=== PATIENT | male | born 1970 | race Caucasian/White ===

== ENCOUNTER 2019-09-26 11:09 | Emergency (ER) | payer OTHER, SELFPAY ==
--- NOTE | ~2019-09-26 | CT_ITS ---
EXAMINATION: CT abdomen pelvis w con INDICATION: Right lower quadrant abdominal pain TECHNIQUE: Computed tomographic images of the abdomen and pelvis were obtained after the administrati on of 100 cc of Omnipaque 350 intravenous contrast. The dose-length product (DLP) was 1485.15 mGy-cm. Automated exposure control and iterative reconstruction technique were employed. COMPARISON: None available FINDINGS: The lung bases are clear. The heart size is normal. There is a small sliding hiatal hernia. The liver, spleen, pancreas, gallbladder, and adrenal glands are normal. The left kidney is unremark able. An 8 mm hypoattenuating lesion of the right kidney lower pole is too small to characterize but likely represents a cyst. No pathologically enlarged abdominal or pelvic lymph nodes are identified. There is no free intraperitoneal gas or evidence of bowel obstruction. The appendix is normal. There is a fat-containing left inguinal hernia. There is moderate lumbar spondylosis. IMPRESSION: 1. No CT correlate for the patient's symptoms. Reviewed, dictated and finalized at location A.
--- NOTE | 2019-09-26 11:20 | ED.ABDPAIN ---
HPI - Abdominal Pain General Chief Complaint: Abdominal Pain Stated Complaint: sharp pain in r side Time Seen by Provider: 09/26/19 11:30 History of Present Illness HPI narrative: Patient was adjusting the level on his lawnmower and bending over to do that. He felt a pop on the right side just above the belt line. Immediate severe pain. Number anything like this before. MD elicited complaint: abdominal pain Pertinent past history: none Onset (ago): minute(s) (30) Pain Consistency: constant Location: RLQ and R flank Pain scale (0-10): 8 Quality: stabbing and sharp Radiation: none Migration to: no migration Exacerbating factors: movement Relieving factors: nothing Associated symptoms: denies other symptoms Related Data Home Medications Medication Instructions Recorded Confirmed metoprolol succinate 100 mg PO DAILY 09/26/19 09/26/19 omeprazole 40 mg PO DAILY 09/26/19 09/26/19 Allergies Allergy/AdvReac Type Severity Reaction Status Date / Time No Known Allergies Allergy Verified 09/26/19 11:59 Review of Systems Review of Systems: All systems reviewed & are unremarkable except as noted in HPI and below PMFSH Past Medical History Medical History (Updated 09/26/19 @ 13:31 by Bernardo Farley MD) Gastroesophageal reflux disease Hypertension Surgical History Surgical History (Updated 09/26/19 @ 12:02 by Bernardo Farley MD) H/O cervical spine surgery Social History Social History (Updated 09/26/19 @ 12:03 by Bernardo Farley MD) Smoking status: Never smoker Alcohol intake: current Alcohol use details: occasional Substance use: never Exam Const: General: healthy appearing, no acute distress and alert Nutritional Appearance: well nourished and obese morbidly obese Orientation/consciousness: patient oriented x3 HENMT: Head: normal to inspection Ears: external ears normal Eyes: Conjunctivae: conjunctivae normal Pupils: Equal, round and reactive pupils present EOM: EOMs intact bilaterally Neck: Neck: normal visual inspection Resp: Effort & Inspection: normal respiratory effort Auscultation: clear to auscultation bilaterally Cardio: Rate: regular rate Rhythm: regular rhythm Heart sounds: no murmurs GI: GI Palp: Yes Soft to palpation and Yes Tenderness to palpation present (GI) ( severe tenderness in the right lower quadrant.) Other: patient is exquisitely tender in the right lower quadrant just above the belt line and in the distal clavicular line. Seems to be more in the abdominal wall. I cannot appreciate any masses or herniation of tissue. Back/Spine/Pelvis: Cervical Spine: cervical ROM normal Thoracic/Lumbar Spine: thoraco-lumbar ROM normal Skin: General skin exam: normal color Rashes: no rashes Neuro: General: patient oriented x3, moves all extremities and no focal motor deficits Speech: normal speech Gait exam (Neuro): Normal gait present Extrem: General: normal to inspection and no clubbing, cyanosis or edema Psych: Appearance: grossly normal and well kempt Mental Status: mental status grossly normal Affect: normal affect Attitude: cooperative Thought content: Yes Normal thought content present Course Vital Signs Vital signs: Vital Signs Temperature 37.1 C 09/26/19 11:45 Pulse Rate 111 H 09/26/19 11:45 Respiratory Rate 09/26/19 11:45 Blood Pressure 164/96 H 09/26/19 11:45 Pulse Oximetry 95 09/26/19 11:45 Temperature 37.1 C 09/26/19 11:45 Pulse Rate 111 H 09/26/19 11:45 Respiratory Rate 09/26/19 11:45 Blood Pressure 112/94 H 09/26/19 13:43 Pulse Oximetry 95 09/26/19 11:45 MDM - Abdominal Pain Lab Data Attestation: I reviewed the patient's lab results. Result diagrams: 09/26/19 12:04 09/26/19 12:04 Labs: Lab Results 09/26/19 09/26/19 09/26/19 Range/Units 11:47 12:04 12:04 WBC 8.4 (4.8-10.8) K/mm3 RBC 4.98 (4.70-6.10) M/mm3 Hgb 15.3 (14.0-18.0) g/dL Hct 44.9
[2019-09-26 11:45] VITALS: BP 164/96; PULSE 111; RESP 20; TEMP 37.1; O2SAT 95
[2019-09-26 12:05] LABS: Add Urine Microscopic? YES; Appearance Urine Clear (Clear); Bilirubin Urine 1+ (Negative); Blood Urine 2+ (Negative); Color Urine Yellow (Yellow); Glucose Urine UA Negative (Negative); Ketones Urine Trace (Negative); Leukocyte Esterase Ur Negative LEU/UL (Negative); Nitrate Urine Negative (Negative); Protein Urine 1+ (Negative); Specific Grav Ur >= 1.030 (1.010-1.020); Urobilinogen Urine 0.2 mg/dL (0.2-1.0); pH Urine 5.5 (5.0-8.0)
[2019-09-26] MEDS: KETOROLAC 30 MG/ML VIAL (*BKC) IV PUSH (12:06)
[2019-09-26 12:08] LABS: Basophils Absolute Auto 0.07 K/mm3 (0.00-0.10); Basophils Percent Auto 0.8 % (0.0-1.0); Eosinophils Percent Auto 2.4 % (1.0-6.0); Hematocrit 44.9 % (40.0-54.0); Hemoglobin 15.3 g/dL (14.0-18.0); Immature Granulocyte Absolute 0.03 K/mm3 (0.00-0.00); Immature Granulocyte Percent A 0.4 % (0.0-0.0); Lymphocytes Absolute Auto 1.79 K/mm3 (1.10-4.50); Lymphocytes Percent Auto 21.3 % (18.0-42.0); Mean Corpuscular HGB Conc 34.1 g/dL (32.0-36.0); Mean Corpuscular Hemoglobin 30.7 pg (27.0-31.0); Mean Corpuscular Volume 90.2 fL (78.0-102.0); Mean Platelet Volume 9.8 fl (8.7-11.0); Monocytes Percent Auto 9.5 % (2.0-11.0); Neutrophils Absolute Auto 5.5 K/mm3 (1.7-7.2); Neutrophils Percent Auto 65.6 % (50.0-70.0); Platelet Count Result 278 K/mm3 (150-420); Red Blood Count 4.98 M/mm3 (4.70-6.10); Red Cell Distribution Width 12.2 % (11.6-14.4); White Blood Count 8.4 K/mm3 (4.8-10.8)
[2019-09-26 12:12] LABS: Bacteria Urine 1+ /hpf; Mucus Urine Moderate /lpf; WBC Urine 0-3 /hpf (0-3)
[2019-09-26 12:25] LABS: Alanine Aminotransferase 32 U/L (16-63); Albumin Level 4.1 g/dL (3.4-5.0); Alkaline Phosphatase 123 U/L (46-116); Anion Gap 9.9 mmol/L (7-16); Aspartate Amino Transferase 26 U/L (15-37); Bilirubin,Total 1.4 mg/dL (0.00-1.00); Blood Urea Nitrogen 18 mg/dL (7-18); Calcium 9.5 mg/dL (8.5-10.1); Carbon Dioxide 30 mmol/L (21-32); Chloride 101 mmol/L (98-108); Estimated Glomerular Filt Rate 47; Glucose 125 mg/dL (70-99); Osmolality Calculated 286 mOsm/kg (285-295); Potassium 3.9 mmol/L (3.5-5.1); Sodium 137 mmol/L (136-145)
[2019-09-26 12:29] LABS: CRP 2.9 mg/dL (0.0-0.9)
[2019-09-26 13:43] VITALS: BP 112/94
== END 2019-09-26 13:44 | disposition home or self-care (01) ==
PROVIDERS: Emergency Provider Emergency Medicine
DX: S39.011A Strain of muscle, fascia and tendon of abdomen, initial encounter (principal); X50.1XXA Overexertion from prolonged static or awkward postures, initial encounter
CPT/HCPCS: 36415; 74177; 80053; 81001; 85025; 86140; 96374; 99284; J1885; Q9965

== ENCOUNTER 2019-11-06 10:31 | Emergency (ER) | payer BC, SELFPAY ==
--- NOTE | 2019-11-06 10:42 | ED.BACK ---
HPI - Back Pain/Injury General Chief Complaint: Back Pain/Injury Stated Complaint: lower back pain Time Seen by Provider: 11/06/19 10:42 Source: patient and RN notes reviewed Mode of arrival: ambulatory Limitations: no limitations History of Present Illness HPI Narrative: Patient states that he has been doing some increased work and lifting at his job. He does not recall any particular trauma. He said he had this once before. He denies any radiation down his legs. Denies any numbness or tingling. MD elicited complaint: back pain Onset (ago): week(s) (1) Timing: intermittent Severity: moderate Quality: dull, aching and spasming Location: lumbar spine Radiation: none Exacerbating factors: movement and walking Relieving factors: none Context: while lifting, turning/twisting and bending Associated symptoms: denies other symptoms Related Data Home Medications Medication Instructions Recorded Confirmed metoprolol succinate 100 mg PO DAILY 09/26/19 11/06/19 omeprazole 40 mg PO DAILY 09/26/19 11/06/19 Allergies Allergy/AdvReac Type Severity Reaction Status Date / Time No Known Allergies Allergy Verified 09/26/19 11:59 Review of Systems Review of Systems: All systems reviewed & are unremarkable except as noted in HPI and below PMFSH Past Medical History Medical History Gastroesophageal reflux disease Hypertension Surgical History Surgical History H/O cervical spine surgery Social History Social History Smoking status: Never smoker Alcohol intake: current Substance use: never Exam Const: General: healthy appearing, no acute distress and alert Nutritional Appearance: well nourished and obese centrally obese Orientation/consciousness: patient oriented x3 HENMT: Head: normal to inspection Face and sinus: normal facial exam Eyes: Conjunctivae: conjunctivae normal Pupils: Equal, round and reactive pupils present EOM: EOMs intact bilaterally Neck: Neck: normal visual inspection Resp: Effort & Inspection: normal respiratory effort Auscultation: clear to auscultation bilaterally Cardio: Rate: regular rate Rhythm: regular rhythm GI: Auscultation: normal bowel sounds Back/Spine/Pelvis: Cervical Spine: cervical ROM normal Thoracic/Lumbar Spine: thoracic and lumbar spine normal to inspection, straight leg raise negative bilaterally, pain with thoraco-lumbar ROM, paraspinal muscle tenderness on the left in the lower lumbar, thoraco-lumbar ROM limited (Mild in all directions) and No lumbar spinal tenderness Skin: General skin exam: normal color Rashes: no rashes Neuro: General: patient oriented x3, moves all extremities and no focal motor deficits Speech: normal speech Course Course Emergency Course: I explained the patient that episodes of back strain clear in 3-6 weeks. If symptoms persist he should follow-up with primary care to consider some physical therapy. Discharge Plan Discharge Clinical Impression: Strain of lumbar region Qualifiers: Encounter type: initial encounter Qualified Code(s): S39.012A - Strain of muscle, fascia and tendon of lower back, initial encounter Patient Disposition: Home, Self-Care Condition: Stable Instructions: Acute Low Back Pain (ED), Lower Back Exercises (ED) Additional Instructions: do not use any other ibuprofen Aleve or Advil while taking nabumetone. Follow up with her primary care if not significantly improved in 2-3 weeks. Prescriptions: New nabumetone 750 mg tablet 750 mg PO BID 10 Days Qty: 20 RF: 0 cyclobenzaprine 10 mg tablet 10 mg PO TID PRN (Reason: muscle spasm) Qty: 30 RF: 0 No Action metoprolol succinate 100 mg tablet extended release 24 hr 100 mg PO DAILY RF: 0 omeprazole 40 mg capsule,delayed release(DR/EC) 40 mg PO DAILY RF: 0 Follow-up/Re
[2019-11-06 10:50] VITALS: BP 149/100; PULSE 90; RESP 20; TEMP 37.1; O2SAT 98
[2019-11-06] MEDS: KETOROLAC (*BKC) 60 MG/2 ML VIAL IM (10:58)
[2019-11-06 11:07] VITALS: RESP 16
== END 2019-11-06 11:07 | disposition home or self-care (01) ==
PROVIDERS: Emergency Provider Emergency Medicine
DX: S39.012A Strain of muscle, fascia and tendon of lower back, initial encounter (principal); X50.9XXA Other and unspecified overexertion or strenuous movements or postures, initial encounter
CPT/HCPCS: 96372; 99283; J1885